=== PATIENT | male | born 1960 ===

== ENCOUNTER 2024-04-18 08:47 | Day surgery (SDC) | payer OTHER ==
[~2024-04-18] VITALS: Ht 162.6 cm; Wt 61.2 kg
[~2024-04-18 08:47] MED LIST: ATORVASTATIN CA10 MG PO; UROXATRAL10 MG PO
[2024-04-18] MEDS ORDERED: CEFAZOLIN SODIUM 1,000 MG VIAL ONE (09:59)
[2024-04-18] MEDS ORDERED: BUPIVACAINE HCL/MPF 0.5% 30ML VIAL ONE (11:06)
[2024-04-18] MEDS ORDERED: TRAMADOL HCL50 MG PO (13:41)
[2024-04-18] MEDS ORDERED: TYLENOL ARTHRI650 MG PO (13:41)
[2024-04-18] MEDS ORDERED: KETO10TA2 PO (13:41)
[2024-04-18] MEDS ORDERED: MIRALAX17 GM PO (13:41)
[2024-04-18] MEDS ORDERED: ONDANSETRON HCL 2 MG/ML VIAL ONE (13:43)
== END 2024-04-18 15:45 | disposition home or self-care (01) ==
LOC: CIR.AMB 08:47
PROVIDERS: ATTEND Surgery
DX: K40.90 Unilateral inguinal hernia, without obstruction or gangrene, not specified as recurrent (principal); K42.0 Umbilical hernia with obstruction, without gangrene; Z88.2 Allergy status to sulfonamides; E78.00 Pure hypercholesterolemia, unspecified
CPT/HCPCS: 49650; 49592; C1781